=== PATIENT | female | born 1970 | race Caucasian/White ===

== ENCOUNTER 2018-01-07 20:38 | Emergency (ER) | payer OTHER, BC ==
[~2018-01-07] VITALS: Ht 167.6 cm; Wt 90.0 kg
[~2018-01-07 20:38] MED LIST: HYDR-3240 PO; IBUP-1222 PO; None at this time
[2018-01-07 20:40] VITALS: BP 138/87
[2018-01-07 21:30] LABS: MICROSCOPIC INDICATED
[2018-01-07 21:31] LABS: CULTURE INDICATED? YES
== END 2018-01-07 21:48 | disposition home or self-care (01) ==
LOC: ED 21:13
DX: N30.01 Acute cystitis with hematuria (principal)
CPT/HCPCS: 81001; 87086; 99284

== ENCOUNTER → 2018-03-04 | Outpatient (CLI) | payer OTHER, BC ==
[~2018-03-04] MED LIST changes: +OMNIPAQUE 350 MG/ML, 100ML BOTTLE ONE
== END ==
LOC: CFH 10:32
PROVIDERS: ATTEND Family Medicine
DX: D17.0 Benign lipomatous neoplasm of skin and subcutaneous tissue of head, face and neck (principal)
CPT/HCPCS: 70491; Q9967

== ENCOUNTER → 2018-05-24 | Outpatient (CLI) | payer OTHER, BC ==
[~2018-05-24] MED LIST changes: -OMNIPAQUE 350 MG/ML, 100ML BOTTLE ONE
== END | disposition home or self-care (01) ==
LOC: CFH 06:44
PROVIDERS: ATTEND Family Medicine
DX: R51 Headache (principal)
CPT/HCPCS: 70551